=== PATIENT | male | born 1985 | race Caucasian/White ===

== ENCOUNTER 2017-12-19 20:59 | Emergency (ER) | payer OTHER ==
[2017-12-19 23:59] VITALS: BP 169/94
--- NOTE | 2017-12-20 02:00 | ER Document Report ---
HPI - HPI Patient complains to provider of: skin rash Pain Level: Denies Context: Patient is a 32-year-old male comes emergency department for chief complaint of a rash on the back of his right leg where he just got a tattoo completed. Tattoo was completed several days ago. He denies itchiness, pain, he states he is concerned about the appearance of the rash. He denies any daily medications or any past medical problems. Tetanus up-to-date. - CONSTITUTIONAL Constitutional: DENIES: Fever, Chills - EENT EENT: DENIES: Sore Throat, Ear Pain, Eye problems - NEURO Neurology: DENIES: Headache, Weakness, Vision blurred, Dizzinesss / Vertigo - CARDIOVASCULAR Cardiovascular: DENIES: Chest pain - RESPIRATORY Respiratory: DENIES: Trouble Breathing, Coughing - GASTROINTESTINAL Gastrointestinal: DENIES: Abdominal Pain, Black / Bloody Stools - URINARY Urinary: DENIES: Dysuria, Urgency, Frequency - MUSCULOSKELETAL Musculoskeletal: REPORTS: Extremity pain - R lower leg Past Medical History - General Information source: Patient - Social History Smoking Status: Current Some Day Smoker Frequency of alcohol use: Occasional Drug Abuse: None Lives with: Family Family History: Reviewed & Not Pertinent Patient has suicidal ideation: No Patient has homicidal ideation: No - Medical History Medical History: Negative Renal/ Medical History: Denies: Hx Peritoneal Dialysis Surgical Hx: Negative - Immunizations Immunizations up to date: Yes Hx Diphtheria, Pertussis, Tetanus Vaccination: Yes Vertical Provider Document - CONSTITUTIONAL General Appearance: WD/WN, No Apparent Distress, Obese - INFECTION CONTROL TRAVEL OUTSIDE OF THE [place] IN LAST 30 DAYS: No - HEENT HEENT: Atraumatic, Normocephalic - NECK Neck: Normal Inspection - RESPIRATORY Respiratory: Breath Sounds Normal, No Respiratory Distress O2 Sat by Pulse Oximetry: 96 - CARDIOVASCULAR Cardiovascular: Regular Rate, Regular Rhythm - GI/ABDOMEN Gastrointestinal: Abdomen Soft, Abdomen Non-Tender - MUSCULOSKELETAL/EXTREMETIES Musculoskeletal/Extremeties: MAEW, FROM, Non-Tender - DERM Integumentary: Rash - There is patchy redness over the inferior aspect of the tattoo and slightly below, located on the right calf area. No abnormal heat, no pustules, papules, vesicles, bulla, induration, or fluctuance. Course - Re-evaluation Re-evalutation: Patchy macular rash, no itchiness, no pain, no evidence of infection. Suspect this is a reactive rash because of the color and the tattoo. Appears to be dermatitis. No evidence of life-threatening rash. Discussed this with patient , discussed recommendations, discussed follow-up and return precautions, patient states understanding and agreement. - Vital Signs Vital signs: Temp Pulse Resp BP Pulse Ox 98.3 F 70 16 169/94 H 96 12/19/17 23:57 12/19/17 23:57 12/19/17 23:57 12/19/17 23:57 12/19/17 23:57 Discharge - Discharge Clinical Impression: Skin rash Condition: Stable Disposition: HOME, SELF-CARE Additional Instructions: Your examination is consistent with a colored ink reaction of your immune system. This actually usually resolves on its own with time. I recommend moisturizing cream such as aloe vera, you can consider antihistamine such as Zyrtec, Benadryl , or even consider using a topical steroid such as hydrocortisone. Follow-up with primary care. Return for any concerning or worsening symptoms including spreading redness, increased heat to the area, pain to the area, fever of 100.4 or greater, or any other concerning symptoms.
== END 2017-12-20 02:08 | disposition home or self-care (01) ==
LOC: ER 20:59
DX: R21 Rash and other nonspecific skin eruption (principal); F17.200 Nicotine dependence, unspecified, uncomplicated
CPT/HCPCS: 99282